=== PATIENT | male | born 1950 | race Caucasian/White ===

== ENCOUNTER 2016-10-14 09:05 | Emergency (ER) | payer MEDICARE, OTHER ==
[2016-10-14 09:15] VITALS: BMI 28.3
--- NOTE | 2016-10-14 10:32 | C.PDOC ---
History Of Present Illness 66-year-old male, presents to the emergency department with complaints of neck pain. Patient states he developed right-sided neck pain yesterday that traveled to left. Patient states pain did not subside, resulting in him coming to ED for evaluation today. Patient notes associated left arm pain. Denies numbness/ weakness, fevers, chills, or any other associated symptoms. No other complaints at this time. Time Seen by Provider: 10/14/16 09:39 Chief Complaint (Nursing): Medical Clearance History Per: Patient History/Exam Limitations: no limitations Onset/Duration Of Symptoms: Days Current Symptoms Are (Timing): Still Present Severity: Moderate Past Medical History Reviewed: Historical Data, Nursing Documentation, Vital Signs Vital Signs: Last Vital Signs Temp 97.8 F 10/14/16 09:24 Pulse 70 10/14/16 10:57 Resp 14 10/14/16 10:57 BP 103/61 10/14/16 10:57 Pulse Ox 95 10/14/16 11:16 - Medical History PMH: Diabetes, HTN, Hypercholesterolemia, Hypothyroidism Denies: Chronic Kidney Disease Surgical History: CABG, Endoscopy - [facility] Procedures INCIS W REM OF FORIEGN BODY OR DEV FROM SKIN & SUBCUT TISSUE (03/24/14) INJECT CA CHEMOTHER NEC (11/09/12) INJECT STEROID (11/09/12) INJECT/INFUSE NEC (11/09/12) Family History: States: No Known Family Hx - Social History Hx Tobacco Use: No Hx Alcohol Use: No Hx Substance Use: No - Immunization History Hx Tetanus Toxoid Vaccination: No Hx Influenza Vaccination: No Hx Pneumococcal Vaccination: No Review Of Systems Except As Marked, All Systems Reviewed And Found Negative. Constitutional: Negative for: Fever, Chills Cardiovascular: Negative for: Chest Pain, Palpitations Respiratory: Negative for: Shortness of Breath Gastrointestinal: Negative for: Nausea, Vomiting Musculoskeletal: Positive for: Neck Pain, Arm Pain. Negative for: Back Pain Physical Exam - Physical Exam Appears: Non-toxic, No Acute Distress Skin: Warm, Dry, No Rash Head: Atraumatic, Normacephalic Eye(s): bilateral: Normal Inspection, PERRL Nose: Normal Oral Mucosa: Moist Neck: Normal ROM, Paracervical Tenderness (B/L, w/ swelling) Cardiovascular: Rhythm Regular, No Murmur Respiratory: Normal Breath Sounds, No Accessory Muscle Use Extremity: Normal ROM Neurological/Psych: Oriented x3, Normal Speech ED Course And Treatment - Laboratory Results Result Diagrams: 10/14/16 10:55 10/14/16 10:55 O2 Sat by Pulse Oximetry: 95 Medical Decision Making Medical Decision Making: Plan: * EKG * BNP, CMP, Trop I * CBC, PTT, PT * Chest X-Ray * Aspirin * X-Ray C-Spine * Reassess and Disposition Disposition - Disposition Referrals: [facility] at [facility] [Outside] Raul Topete MD [Staff Provider] - Disposition: HOME/ ROUTINE Disposition Time: 13:40 Condition: GOOD Additional Instructions: Follow up with the medical doctor within 1-2 days. Return if worsened. Prescriptions: Diazepam [Valium] 2 mg PO TID #21 tab Naproxen [Naprosyn] 500 mg PO BID #20 tab predniSONE [Prednisone] 20 mg PO BID #10 tab Instructions: Cervical Sprain (ED) Print Language: GUYANESE - PA / [place] [place] [employer] / Resident Statement / has reviewed & agrees with the documentation as recorded. - Scribe Statement Kieran Benitez All medical record entries made by the Scribe were at my direction and personally dictated by me. I have reviewed the chart and agree that the record accurately reflects my personal performance of the history, physical exam, medical decision making, and the department course for this patient. I have also personally directed, reviewed, and agree with the discharge instructions and disposition.
[2016-10-14] MEDS ORDERED: Aspirin 325 mg EC Tablets PO STA (10:35)
[2016-10-14 10:58] LABS: BASO % 0.6 % (0.0-2.0); EOS # 0.1 K/uL (0.0-0.7); EOS % 1.6 % (0.0-4.0); HEMATOCRIT 47.6 % (35.0-51.0); LYMPH # 1.3 K/uL (1.0-4.3); LYMPH % 21.5 % (20.0-40.0); MEAN CELL VOLUME 92.4 fL (80.0-94.0); MEAN CORPUSCULAR HEMOGLOBIN 30.5 pg (27.0-31.0); MEAN CORPUSCULAR HGB CONC 32.9 g/dL (33.0-37.0); MEAN PLATELET VOLUME 8.4 fL (7.2-11.7); MONO # 0.5 K/uL (0.0-0.8); MONO % 8.8 % (0.0-10.0); RED CELL DISTRIBUTION WIDTH 13.6 % (11.5-14.5); WHITE BLOOD COUNT 6.1 K/uL (4.8-10.8)
[2016-10-14 11:11] LABS: CHLORIDE 101 mmol/L (98-107); POTASSIUM 4.2 mmol/L (3.6-5.2); SODIUM 137 mmol/L (132-148)
[2016-10-14 11:13] LABS: BILIRUBIN,TOTAL 1.1 mg/dL (0.2-1.3); GFR AFRICAN-AMERICAN > 60
[2016-10-14 11:14] LABS: ALB/GLOB RATIO 1.2 (1.0-2.1); ALKALINE PHOSPHATASE 73 U/L (38-126); ALT/SGPT 42 U/L (21-72); AST/SGOT 22 U/L (17-59); BLOOD UREA NITROGEN 29 mg/dL (9-20); CARBON DIOXIDE 24 mmol/L (22-30); GLUCOSE,RANDOM 313 mg/dL (75-110); TOTAL PROTEIN 7.1 g/dL (6.3-8.3)
[2016-10-14 11:15] LABS: CALCIUM 8.5 mg/dl (8.6-10.4)
[2016-10-14 12:06] LABS: THYROID STIMULATING HORMONE 0.09 mIU/L (0.46-4.68)
--- NOTE | 2016-10-14 12:06 | RAD ---
PROCEDURE: CHEST RADIOGRAPH, 1 VIEW HISTORY: chest pain COMPARISON: 03/21/2014 FINDINGS: LUNGS: Mild venous congestion with mild patchy left basilar airspace opacity. PLEURA: No pneumothorax or pleural fluid seen. CARDIOVASCULAR: Status post median sternotomy. Mild cardiomegaly. OSSEOUS STRUCTURES: Degenerative changes in the spine and shoulders. VISUALIZED UPPER ABDOMEN: Normal. OTHER FINDINGS: None. IMPRESSION: Mild venous congestion with mild patchy left basilar airspace opacity.
[2016-10-14] MEDS ORDERED: Dexamethasone 4 mg/1 ml IVP STA (12:36)
[2016-10-14] MEDS ORDERED: Sodium Chloride 0.9% 1,000 ML IV ONE (12:37)
[2016-10-14] MEDS ORDERED: Dexamethasone 4 mg/1 ml ONE (12:53)
[2016-10-14] MEDS ORDERED: Sodium Chloride 0.9% 1,000 ML ONE (12:53)
[2016-10-14 14:01] VITALS: BP 122/68; PULSE 62; RESP 18; TEMP 97.9; O2SAT 96
--- NOTE | 2016-10-15 11:29 | CARD ---
APPROVED REPORT EKG Measurement Heart [id number] <Conclusion> Normal sinus rhythm Left axis deviation Nonspecific intraventricular block T wave abnormality, consider lateral ischemia Abnormal ECG
== END 2016-10-14 14:17 | disposition home or self-care (01) ==
LOC: C.ER 09:05
DX: S13.4XXA Sprain of ligaments of cervical spine, initial encounter (principal); X58.XXXA Exposure to other specified factors, initial encounter; Y93.89 Activity, other specified; Y92.89 Other specified places as the place of occurrence of the external cause; I10 Essential (primary) hypertension; E78.00 Pure hypercholesterolemia, unspecified
CPT/HCPCS: 71010; 80053; 83880; 84443; 84484; 85025; 85610; 85730; 93005; 96361; 96374; 96375; 99285; J1100; J1885; J7040